=== PATIENT | female | born 1980 | race Caucasian/White ===

== ENCOUNTER 2017-01-23 12:10 | Inpatient (IN) | payer BC, OTHER ==
[~2017-01-23] VITALS: Ht 165.1 cm; Wt 124.0 kg
[2017-01-23 12:15] VITALS: Ht 165.1 cm; Wt 124.0 kg
[2017-01-23] MEDS ORDERED: NITROGLYCERIN 2% 1 GM OINT PKT TD STA (16:27)
[2017-01-23] MEDS ORDERED: ASPIRIN 81 MG TAB PO STA (16:27)
[2017-01-23] MEDS ORDERED: NITROGLYCERIN (SL) 0.4 MG TAB SL PRN (16:30)
--- NOTE | 2017-01-23 16:47 | RADRPT ---
PROCEDURE: XR Chest. CLINICAL INDICATION: Chest pain. TECHNIQUE: Single frontal view. COMPARISON: None. FINDINGS: The lungs are clear. The heart size is normal. There is no pleural effusion. There is no pneumothorax. IMPRESSION: 1. Normal chest radiograph. RPTAT: QQ .Qasim Paredes MD, Date Time Electronically viewed and signed by .Qasim Paredes MD, on 01/23/2017 16:46 .R/
[2017-01-23 17:42] LABS: BASOPHILS % 0.4 % (0.0-2.0); EOSINOPHILS # 0.2 10^3/ul (0.0-0.5); EOSINOPHILS % 1.5 % (0.0-7.0); HEMATOCRIT 42.9 % (37.0-47.0); HEMOGLOBIN 14.5 g/dl (12.0-16.0); LYMPHOCYTES % 17.8 % (15.0-51.0); MEAN CORPUSCULAR HEMOGLOBIN 26.1 pg (29.0-33.0); MEAN CORPUSCULAR HGB CONC 33.8 g/dl (32.0-37.0); MEAN CORPUSCULAR VOLUME 77.3 fl (82.0-101.0); MONOCYTE # 0.6 10^3/ul (0.3-0.9); MONOCYTES % 5.5 % (0.0-11.0); NEUTROPHILS % 74.5 % (39.0-77.0); PLATELET COUNT 217 10^3/UL (140-415); RED BLOOD COUNT 5.55 10^6/ul (4.20-5.40); RED CELL DISTRIBUTION WIDTH 15.1 % (11.5-14.5)
[2017-01-23 17:44] LABS: ANION GAP 19 (8-16); BLOOD UREA NITROGEN 9 mg/dl (7-20); CALCIUM 8.8 mg/dl (8.4-10.2); CARBON DIOXIDE 26 mmol/L (21-31); CHLORIDE 99 mmol/L (97-110); CREATININE 0.52 mg/dl (0.44-1.00); GLUCOSE 78 mg/dl (70-220); SODIUM 139 mmol/L (135-144)
[2017-01-23 17:45] LABS: POTASSIUM 4.5 mmol/L (3.5-5.1)
[2017-01-23 17:56] LABS: TROPONIN-I < 0.012 ng/ml (0.00-0.12)
[2017-01-23] MEDS ORDERED: ONDANSETRON 4 MG INJ IV PRN (18:30)
[2017-01-23] MEDS ORDERED: ACETAMINOPHEN 325 MG TAB PO PRN (18:30)
--- NOTE | 2017-01-23 18:54 | ERA ---
ER Documentation Chief Complaint Date/Time DATE: 01/23/17 TIME: 18:52 Chief Complaint Complains of chest pain and SOB since this am HPI Patient is a 36-year-old female with obesity who presents with chest pain. She had chest pain while she was at work. It was sudden onset of chest pain and back pain. She felt that her right arm was cold. She has shortness of breath. The symptoms started at 10:40 AM. She still feels pressure now. She said that she has no recent workouts or heavy lifting. She tried ibuprofen with no help. Upon review of old medical records this is the patient's first visit to the emergency department. ROS All systems reviewed and are negative except as per history of present illness. Medications Home Meds No Active Prescriptions or Reported Meds Allergies Allergies: Coded Allergies: No Known Allergy (Unverified , 01/23/17) PMhx/Soc Medical and Surgical Hx: pt denies Medical Hx, pt denies Surgical Hx Hx Alcohol Use: No Hx Substance Use: No Hx Tobacco Use: No Smoking Status: Never smoker FmHx Family History: No coronary disease Physical Exam Vitals Vital Signs Date Time Temp Pulse Resp B/P Pulse Ox O2 Delivery O2 Flow Rate FiO2 01/23/17 17:56 94 20 126/82 100 Room Air 01/23/17 16:59 95 18 135/83 98 Room Air 01/23/17 12:15 98.6 87 20 149/91 99 Physical Exam Const: Mild distress Head: Atraumatic Eyes: Normal Conjunctiva ENT: Normal External Ears, Nose and Mouth. Neck: Full range of motion..~ No meningismus. Resp: Clear to auscultation bilaterally Cardio: Regular rate and rhythm, no murmurs Abd: Soft, non tender, non distended. Normal bowel sounds Skin: No petechiae or rashes Back: No midline or flank tenderness Ext: No cyanosis, or edema Neur: Awake and alert Psych: Normal Mood and Affect Result Diagram: 01/23/17 1700 01/23/17 1700 Results 24 hrs Laboratory Tests Test 01/23/17 17:00 White Blood Count 11.010^3/ul Red Blood Count 5.5510^6/ul Hemoglobin 14.5g/dl Hematocrit 42.9% Mean Corpuscular Volume 77.3fl Mean Corpuscular Hemoglobin 26.1pg Mean Corpuscular Hemoglobin Concent 33.8g/dl Red Cell Distribution Width 15.1% Platelet Count 87903^3/UL Mean Platelet Volume 13.0fl Neutrophils % 74.5% Lymphocytes % 17.8% Monocytes % 5.5% Eosinophils % 1.5% Basophils % 0.4% Nucleated Red Blood Cells % 0.0/100WBC Neutrophils # (Manual) 8.210^3/ul Lymphocytes # 2.010^3/ul Monocytes # 0.610^3/ul Eosinophils # 0.210^3/ul Basophils # 0.010^3/ul Nucleated Red Blood Cells # 0.010^3/ul Sodium Level 139mmol/L Potassium Level 4.5mmol/L Chloride Level 99mmol/L Carbon Dioxide Level 26mmol/L Anion Gap 19 Blood Urea Nitrogen 9mg/dl Creatinine 0.52mg/dl Glucose Level 78mg/dl Calcium Level 8.8mg/dl Troponin I < 0.012ng/ml Current Medications Medications (Trade) Dose Ordered Sig/Deidre Route PRN Reason Start Time Stop Time Status Last Admin Dose Admin Aspirin (Aspirin) 162 mg ONCE STAT PO 01/23/17 16:27 01/23/17 16:28 DC 01/23/17 16:54 Nitroglycerin (Nitroglycerin 2% Oint) 1 inch ONCE STAT TD 01/23/17 16:27 01/23/17 16:28 DC 01/23/17 16:54 Nitroglycerin (Nitroglycerin (Sl Tab) 0.4 Mg) 1 tab Q5M UP TO 3 DOSES PRN SL CHEST PAIN 01/23/17 16:30 01/23/17 16:55 Ondansetron HCl (Zofran Inj) 4 mg ER BRIDGE PRN IV NAUSEA AND/OR VOMITING 01/23/17 18:30 01/24/17 18:29 Acetaminophen (Tylenol Tab) 650 mg ER BRIDGE PRN PO MILD PAIN/FEVER 01/23/17 18:30 01/24/17 18:29 Procedures/MDM EKG #1 shows normal sinus rhythm, no ST elevations or depressions, normal intervals, overall impression is no signs of ischemia. EKG #2 shows normal sinus rhythm, no ST elevations or depressions, normal intervals, overall impression is no signs of ischemia. Chest x-ray shows no pneumonia or pneumothorax per radiology. Patient is a 36-year-old female with obesity who presents with chest pain. I am concerned about her story as this could potentially be acute coronary syndrome. I doubt pneumonia, pneumothorax, pulmonary embolism, or aortic dissection. The patient will be admitted to the care of the panel team to a telemetry bed for further evaluation of acute coronary syndrome. She was given aspirin nitroglycerin. She will be admitted to a telemetry bed. Departure Diagnosis: Primary Impression: Chest pain Qualified Code: R07.9 - Chest pain, unspecified type Condition: JULI Herrera MD Jan 23, 2017 18:54
[2017-01-23 21:30] VITALS: TEMP 98.1
[2017-01-23 23:20] VITALS: BP 149/79; PULSE 80; RESP 20
[2017-01-23 23:36] VITALS: PULSE 90
[2017-01-23 23:47] LABS: CREATINE KINASE 42 IU/L (23-200)
[2017-01-24] VITALS (7 sets, daily range): BP systolic 124–140; BP diastolic 74–78; PULSE 72–93; RESP 14
[2017-01-24 00:02] LABS: CK-MB < 0.22 ng/ml (0.0-2.4); TROPONIN-I < 0.012 ng/ml (0.00-0.12)
[2017-01-24] MEDS ORDERED: morphine 2 MG INJ IV PRN (04:00)
[2017-01-24] MEDS ORDERED: ACETAMINOPHEN 325 MG TAB PO PRN (04:00)
[2017-01-24] MEDS ORDERED: ONDANSETRON 4 MG INJ IV PRN (04:00)
[2017-01-24] MEDS ORDERED: NACL 0.9% 3 ML SYG IV SCH (04:00)
[2017-01-24] MEDS ORDERED: ALBUTEROL/IPRATROPIUM (NEB) 3 ML AMP HHN PRN (04:00)
[2017-01-24] MEDS ORDERED: NITROGLYCERIN (SL) 0.4 MG TAB SL PRN (04:00)
--- NOTE | 2017-01-24 05:49 | HP ---
Date/Time of Note Date/Time of Note DATE: 01/24/17 TIME: 05:39 Assessment/Plan VTE Prophylaxis VTE Prophylaxis Intervention: heparin Lines/Catheters IV Catheter Type (from Nrsg): Saline Lock Urinary Cath still in place: No Assessment/Plan Assessment/Plan 1. Chest pain, rule out ACS -Continue telemetry monitoring -Troponin negative [address] no [address]-T wave abnormalities -Supplemental oxygen, beta-heide, with as needed nitro and morphine -Check A1c, fasting lipid and TSH in the morning -2D echo -Cardiology consult as needed 2. Mild leukocytosis -Likely reactive -Monitor for now 3. Morbid obesity with a BMI of 45 -Weight reduction advised HPI/ROS Admit Date/Time Admit Date/Time Jan 23, 2017 at 18:02 Hx of Present Illness This is a 36-year-old morbidly obese female with no significant past medical history who presented to the emergency department complaining of chest pain. Pain started today several hours ago while she was at work. It is mainly located in the mid chest and also slightly left-sided with associated upper back pain and mild numbness on the right arm. Denied associated shortness of breath, nausea, vomiting or diaphoresis. Denied history of chest pain. When she presented to the ER, BP was 149/91 with a heart rate of 87. Troponin negative [address] with no [address]-T wave abnormalities. Chest x-ray was no active disease. Labs shows WBC of 11 otherwise CBC and BMP was within acceptable range. . PMH/Family/Social Social History Smoking Status: Never smoker Exam/Review of Systems Vital Signs Vitals Vital Signs Date Time Temp Pulse Resp B/P Pulse Ox O2 Delivery O2 Flow Rate FiO2 01/24/17 04:01 85 01/23/17 23:20 98.6 20 149/79 99 Room Air Labs Result Diagram: 01/23/17 1700 01/23/17 1700 Medications Medications Current Medications Ondansetron HCl (Zofran Inj) 4 mg Q6H PRN IV NAUSEA AND/OR VOMITING; Start 01/24 at 04:00 Aspirin (Aspirin) 81 mg DAILY PO ; Start 01/24/17 at 09:00 Nitroglycerin (Nitroglycerin (Sl Tab) 0.4 Mg) 1 tab Q5M PRN SL CHEST PAIN; Start 01/24/17 at 04:00 Acetaminophen (Tylenol Tab) 650 mg Q6H PRN PO PAIN LEVEL 1-3 OR FEVER; Start at 04:00 Morphine Sulfate (morphine) 2 mg Q4H PRN IV PAIN LEVEL 7-10; Start 01/24/17 at 04:00 Enoxaparin Sodium (Lovenox) 40 mg DAILY SC ; Start 01/24/17 at 09:00 Metoprolol Tartrate (Lopressor) 25 mg BID PO ; Start 01/24/17 at 09:00 FIFI FLORES MD Jan 24, 2017 05:49
[2017-01-24 06:09] LABS: BASOPHILS % 0.4 % (0.0-2.0); EOSINOPHILS # 0.2 10^3/ul (0.0-0.5); EOSINOPHILS % 1.5 % (0.0-7.0); HEMATOCRIT 42.2 % (37.0-47.0); HEMOGLOBIN 13.9 g/dl (12.0-16.0); LYMPHOCYTES # 1.8 10^3/ul (0.8-2.9); LYMPHOCYTES % 15.7 % (15.0-51.0); MEAN CORPUSCULAR HEMOGLOBIN 25.3 pg (29.0-33.0); MEAN CORPUSCULAR HGB CONC 32.9 g/dl (32.0-37.0); MEAN CORPUSCULAR VOLUME 76.9 fl (82.0-101.0); MEAN PLATELET VOLUME 12.7 fl (7.4-10.4); MONOCYTE # 0.7 10^3/ul (0.3-0.9); MONOCYTES % 6.5 % (0.0-11.0); NEUTROPHILS % 75.4 % (39.0-77.0); PLATELET COUNT 226 10^3/UL (140-415); RED BLOOD COUNT 5.49 10^6/ul (4.20-5.40); RED CELL DISTRIBUTION WIDTH 15.1 % (11.5-14.5); WHITE BLOOD COUNT 11.4 10^3/ul (4.8-10.8)
[2017-01-24 06:59] LABS: CK-MB 0.27 ng/ml (0.0-2.4)
[2017-01-24 07:00] LABS: CREATINE KINASE 47 IU/L (23-200)
[2017-01-24 07:11] LABS: ALBUMIN 4.1 g/dl (3.3-4.9); ALBUMIN/GLOBULIN RATIO 1.32; BILIRUBIN,INDIRECT 0.3 mg/dl (0-1.1); BILIRUBIN,TOTAL 0.3 mg/dl (0.2-1.3); CALCIUM 9.2 mg/dl (8.4-10.2); CHOL/HDL RATIO 4.1 RATIO; CREATININE 0.57 mg/dl (0.44-1.00); POTASSIUM 4.7 mmol/L (3.5-5.1); TOTAL PROTEIN 7.2 g/dl (6.1-8.1); TROPONIN-I < 0.012 ng/ml (0.00-0.12)
[2017-01-24 08:07] LABS: THYROID STIMULATING HORMONE 1.63 MIU/L (0.465-4.680)
[2017-01-24] MEDS ORDERED: METOPROLOL 25 MG TAB PO SCH (09:00)
[2017-01-24] MEDS ORDERED: ASPIRIN 81 MG TAB PO SCH (09:00)
[2017-01-24] MEDS ORDERED: ENOXAPARIN 40 MG/0.4 ML SYG SC SCH (09:00)
--- NOTE | 2017-01-24 12:34 | PDOCDIS ---
Discharge Instructions CONDITION Patient Condition: Good HOME CARE INSTRUCTIONS: Diet Instructions: Reduced Calorie ACTIVITY: Activity Restrictions: No Restrictions FOLLOW UP/APPOINTMENTS Follow-up Plan F/U WITH YOUR PCP IN 1-2 WEEKS JOSE OROZCO Jan 24, 2017 12:34
--- NOTE | 2017-01-24 14:33 | DS ---
Date/Time of Note Date/Time of Note DATE: 01/24/17 TIME: 14:30 Discharge Summary Admission/Discharge Info Admit Date/Time Jan 23, 2017 at 18:02 Discharge Date/Time January 24, 2017 Discharge Diagnosis 1. Chest pain likely secondary to anxiety ACS ruled out 2. Morbid obesity Weight loss advised Patient Condition: Good Hospital Course Patient is a 36-year-old morbidly obese female with no significant past medical history who presented to the emergency department complaining of chest pain. This was ruled out with negative troponins 3 negative EKG and chest x-ray that was normal. Patient's chest discomfort was felt to be secondary to anxiety and/ or panic attack and on the day of discharge patient's chest pain had resolved. On day of discharge patient's vitals, labs and physical exam stable showed no further acute complaints and questions are answered. Weight loss was advised. Home Meds No Active Prescriptions or Reported Meds Primary Care Provider Norma Kingston MD Time spent on discharge: > 30 minutes JOSE OROZCO Jan 24, 2017 14:33
--- NOTE | 2017-01-24 19:16 | RADRPT ---
Echocardiogram Report Patient Name: STEFANIE CHENG Gender: Female Date: 1980 Study Date: 24-Jan-2017 Safety And Security Manager: Radha Dickens [facility] Location: [facility] Ref. Physician: FIFI FLORES Quality: Technically Difficult Study Procedures: Transthoracic echocardiogram with complete 2D, M-Mode, and doppler examination. Indications: Chest Pain. 2D/M Mode Doppler Measurement Value Normal Ranges Measurement Value Normal Ranges LVIDd 2D 5.0 3.5 - 5.6 cm AV Peak Lior 1.5 m/sec LVIDs 2D 3.2 2.1 - 4.1 cm AV Peak PG 8.0 mmHg FS 2D 35.0 % LVOT Peak Lior 0.9 m/sec LVPWd 2D 1.3 0.6 - 1.1 cm LVOT Peak PG 3.0 mmHg IVSd 2D 1.3 0.6 - 1.1 cm MV E Peak Lior 1.0 m/sec IVS/LVPW 2D 1.0 MV A Peak Lior 0.7 m/sec AoR Diam 2D 2.7 2.0 - 3.7 cm MV E/A 1.4 LA/Ao 2D 1 0 - 1 MV Decel Time 190 msec EDV 2D 123.0 cm3 MV E/A 1.4 ESV 2D 33.7 cm3 LA Dimen 2D 3.9 2.3 - 4.0 cm Findings Left Ventricle: Normal left ventricular systolic function. Normal left ventricular cavity size. Mild concentric left ventricular hypertrophy. Ejection fraction is visually estimated at 55 %. Tissue Doppler/Mitral Doppler indices are within normal limits. Right Ventricle: Normal right ventricular systolic function. Not well visualized. Left Atrium: The left atrium is normal in size. Right Atrium: Not well visualized. Mitral Valve: Normal appearance and function of the mitral valve with trace physiologic regurgitation. Aortic Valve: Normal appearance of the aortic valve. No significant aortic stenosis or insufficiency. Tricuspid Valve: Tricuspid valve not well visualized. Pulmonic Valve: Pulmonic valve not well visualized. Pericardium: Not well visualized. Aorta: Normal aortic root. IVC: Normal size and normal respiratory collapse consistent with normal right atrial pressure. Conclusions 1.Normal left ventricular systolic function. Normal left ventricular cavity size. Mild concentric left ventricular hypertrophy. Ejection fraction is visually estimated at 55 %. Tissue Doppler/Mitral Doppler indices are within normal limits. 2.Normal appearance and function of the mitral valve with trace physiologic regurgitation. Electronically Signed By: Ryan Zambrano 24-Jan-2017 19:15:23 -0700 Patient Name: STEFANIE CHENG Study Date: 24-Jan-2017 [id number]
== END 2017-01-24 14:30 | disposition home or self-care (01) | DRG 313 ==
LOC: E/R 12:10 → MS3 18:02 → UNDOADMIN 18:45 → MS3 18:45
PROVIDERS: ADMIT Internal Medicine; ATTEND Internal Medicine
DX: R07.9 Chest pain, unspecified (principal); Z68.42 Body mass index [BMI] 45.0-49.9, adult; F41.0 Panic disorder [episodic paroxysmal anxiety]; E66.01 Morbid (severe) obesity due to excess calories; Z71.3 Dietary counseling and surveillance
CPT/HCPCS: 36415; 71010; 80048; 80053; 80061; 82550; 82553; 83036; 83735; 84443; 84484; 85025; 93005; 93306; J1650